=== PATIENT | female | born 1935 | race Caucasian/White ===

== ENCOUNTER 2017-12-02 00:24 | Emergency (ER) | payer OTHER ==
[~2017-12-02] VITALS: Ht 167.6 cm; Wt 83.9 kg
[~2017-12-02 00:24] MED LIST: ACETAMINOPHEN650 M5 PO; AMARYL2 MG PO; AMARYL4 MG PO; AMMONIUM LACTA225 GM TOP; CALCIUM 500 +1 EAC6 PO; CIPRO250 M1 PO; CRANBERRY200 MG PO; CRESTOR10 MG; CRESTOR10 MG PO; CYMBALTA30 MG PO; CYMBALTA60 MG; CYMBALTA60 MG PO; DULCOLAX5 MG PO; DUONEB 2.5-0.5 M3 ML INH; FISH OIL 1,2001 EAC3 PO; GEMFIBROZIL 60600 MG PO; IMDUR 30 MG TAB30 M1 PO; LASIX 20 MG TAB20 MG PO; LEVAQUIN 500 M500 M2 PO; LEVOTHYROXINE 0.15MG PO; LIDOCAINE HCL 210 M1 TOP; LOPRESSOR25 PO; MAPAP325 MG PO; MELATONIN 5 MG1 EAC1 PO; MIRALAX17 GM PO; MIRALAX255 GM PO; NEURONTIN 300300 M1 PO; NITROGLYCERIN0.4 MG SUBLING; ONE TOUCH ULTR1 EACH MC; OYSTER SHELL 51 EACH PO; OYSTER SHELL C500 MG PO; PHENAZOPYRIDIN200 M2 PO; PLAVIX 75 MG TA75 M1 PO; SEA-OMEGA 30 C1 EACH PO; SENOKOT-S TABL1 EACH PO; SYNTHROID125 MC1 PO; THERA M PLUS T1 EAC2 PO; THERA-M CAPLET1 EACH PO; TOPROL XL25 MG PO; TYLENOL325 MG PO; VITAMIN B-6100 MG PO; VITAMIN D 5050000 I1 PO; ZOCOR20 MG PO
[2017-12-02] MEDS ORDERED: PROTONIX40 M1 PO (00:35)
[2017-12-02] MEDS ORDERED: OXYBUTYNIN 5 MG5 M2 PO (00:36)
[2017-12-02] MEDS ORDERED: MIRALAX17 GM PO (00:37)
[2017-12-02] MEDS ORDERED: OMEPRAZOLE20 M2 PO (00:37)
[2017-12-02 00:48] LABS: ABSOLUTE BASOPHILS 0.1 thou/uL (0.0-0.2); ABSOLUTE EOSINOPHILS 0.2 thou/uL (0.0-0.7); ABSOLUTE LYMPHOCYTES 1.2 thou/uL (0.8-5.3); ABSOLUTE MONOCYTES 0.9 thou/uL (0.0-1.2); ABSOLUTE NEUTROPHILS 6.8 thou/uL (1.6-8.1); EOSINOPHILS 2.4 %; HEMATOCRIT 25.6 % (37.0-47.0); HEMOGLOBIN 7.9 gm/dL (12.0-15.0); LYMPHOCYTES 13.3 %; MCH 31.8 pg (26.0-34.0); MCV 102.7 fL (80.0-100.0); MONOCYTES 9.9 %; MPV 7.4 fl. (7.2-11.1); NUCLEATED RBCS 0 /100WBC; PLATELET COUNT* 493 thou/uL (150-400); POLYS 73.4 %; RBC 2.49 mil/uL (4.20-5.00); RDW-CV 18.7 % (10.5-14.5); WBC 9.2 thou/uL (4.0-11.0)
[2017-12-02 00:52] LABS: CALCIUM 7.7 mg/dL (8.5-10.1); CREATININE 2.3 mg/dL (0.6-1.3); POTASSIUM 3.9 mmol/L (3.5-5.1)
[2017-12-02 00:54] LABS: APTT 33.6 Seconds (25.0-31.3)
[2017-12-02 00:56] LABS: ALBUMIN 3.2 g/dL (3.4-5.0); TOTAL BILIRUBIN 0.2 mg/dL (<0.1-1.0); TOTAL PROTEIN 8.1 g/dL (6.4-8.2)
[2017-12-02 02:37] VITALS: BP 149/53
--- NOTE | 2017-12-02 16:45 | EKG ---
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 : 1935 Requested By: Alec Bautista Order Number: [id number] MD: Max Kruse Measurements Intervals [place] Rate: 76 P: -34 SC: 200 QRS: -46 QRSD: 146 T: 36 QT: 471 QTc: 530 Interpretive Statements Sinus rhythm Probable left atrial enlargement RBBB and LAFB Left ventricular hypertrophy Compared to ECG 11/27/2015 11:52:12 Left anterior fascicular block now present Electronically Signed On 12-02-2017 16:45:48 ZIPPER [employer]TER [employer]ST[employer] by Max Kruse [email or web address] <ELECTRONICALLY SIGNED> By: Max Kruse MD, [facility] 12/02/17 1645 0039 0039 Max Kruse MD, FAC /EPI
== END 2017-12-02 02:38 | disposition home or self-care (01) ==
LOC: M.ERS 00:24
PROVIDERS: Family Medicine
DX: S00.83XA Contusion of other part of head, initial encounter (principal); E11.40 Type 2 diabetes mellitus with diabetic neuropathy, unspecified; I12.9 Hypertensive chronic kidney disease with stage 1 through stage 4 chronic kidney disease, or unspecified chronic kidney disease; N18.9 Chronic kidney disease, unspecified; F03.90 Unspecified dementia, unspecified severity, without behavioral disturbance, psychotic disturbance, mood disturbance, and anxiety; Z85.828 Personal history of other malignant neoplasm of skin; Z90.710 Acquired absence of both cervix and uterus; Z90.49 Acquired absence of other specified parts of digestive tract; Z96.651 Presence of right artificial knee joint; Z96.642 Presence of left artificial hip joint; Z88.6 Allergy status to analgesic agent; Z88.0 Allergy status to penicillin; Z88.2 Allergy status to sulfonamides; Z88.8 Allergy status to other drugs, medicaments and biological substances; W07.XXXA Fall from chair, initial encounter; Y93.89 Activity, other specified; Y92.89 Other specified places as the place of occurrence of the external cause; Y99.8 Other external cause status

== ENCOUNTER 2017-12-05 11:48 | Inpatient (IN) | payer OTHER ==
[~2017-12-05] VITALS: Ht 167.6 cm; Wt 83.0 kg
--- NOTE | ~2017-12-05 | PROC ---
[address] [address] PROCEDURE REPORT Name: PHOENIX MCFARLANE Room: [address] IN M.R.#: [id number] Admission: 12/05/17 Attend Phys: Silviano August MD Discharge: Date of : 34 Report #: [id number] THIS REPORT FOR: //name// For GI report, please see Provation report in Perceptive 7 content. By: [id number] Records Staff [facility] /AGNIESZKA
--- NOTE | ~2017-12-05 | PROC ---
[address] [address] PROCEDURE REPORT Name: PHOENIX MCFARLANE Room: [address] IN M.R.#: [id number] Admission: 12/05/17 Attend Phys: Silviano August MD Discharge: 12/12/17 Date of : 34 Report #: [id number] THIS REPORT FOR: //name// For GI report, see Provation report in Perceptive 7 content. By: [id number] Records Staff [facility] /AGNIESZKA
[~2017-12-05 11:48] MED LIST changes: +OMEPRAZOLE20 M2 PO; +OXYBUTYNIN 5 MG5 M2 PO; +PROTONIX40 M1 PO
[2017-12-05 11:54] VITALS: BP 137/75
[2017-12-05 12:16] LABS: ABSOLUTE EOSINOPHILS 0.3 thou/uL (0.0-0.7); ABSOLUTE LYMPHOCYTES 1.3 thou/uL (0.8-5.3); ABSOLUTE MONOCYTES 0.7 thou/uL (0.0-1.2); ABSOLUTE NEUTROPHILS 6.4 thou/uL (1.6-8.1); BASOPHILS 0.2 %; EOSINOPHILS 3.6 %; HEMATOCRIT 24.1 % (37.0-47.0); LYMPHOCYTES 14.6 %; MCH 31.1 pg (26.0-34.0); MCHC 33.1 g/dL (28.0-37.0); MONOCYTES 7.8 %; MPV 7.1 fl. (7.2-11.1); NUCLEATED RBCS 0 /100WBC; PLATELET COUNT* 599 thou/uL (150-400); POLYS 73.8 %; RBC 2.56 mil/uL (4.20-5.00); RDW-CV 19.1 % (10.5-14.5); WBC 8.7 thou/uL (4.0-11.0)
[2017-12-05 12:26] LABS: CALCIUM 8.1 mg/dL (8.5-10.1); CREATININE 2.1 mg/dL (0.6-1.3); POTASSIUM 4.6 mmol/L (3.5-5.1)
[2017-12-05 12:37] LABS: ALBUMIN 3.1 g/dL (3.4-5.0); TOTAL BILIRUBIN 0.3 mg/dL (<0.1-1.0); TOTAL PROTEIN 8.6 g/dL (6.4-8.2); TROPONIN-I LEVEL 0.5 ng/mL (<0.06)
[2017-12-05 14:45] VITALS: BP 129/70
[2017-12-05 14:49] VITALS: BP 127/68
[2017-12-05 15:30] LABS: HEMATOCRIT 22.3 % (37.0-47.0); HEMOGLOBIN 7.2 gm/dL (12.0-15.0); MCH 30.5 pg (26.0-34.0); MCHC 32.3 g/dL (28.0-37.0); MCV 94.5 fL (80.0-100.0); MPV 6.9 fl. (7.2-11.1); NUCLEATED RBCS 0 /100WBC; PLATELET COUNT* 535 thou/uL (150-400); RBC 2.36 mil/uL (4.20-5.00); RDW-CV 19.2 % (10.5-14.5); WBC 8.2 thou/uL (4.0-11.0)
[2017-12-05 15:49] LABS: ABSOLUTE EOSINOPHILS 0.4 thou/uL (0.0-0.7); ABSOLUTE LYMPHOCYTES 1.1 thou/uL (0.8-5.3); ABSOLUTE MONOCYTES 0.7 thou/uL (0.0-1.2); ABSOLUTE NEUTROPHILS 6.1 thou/uL (1.6-8.1); ATYPICAL LYMPHS 2 %; HYPOCHROMASIA 2+; METAMYELOCYTES 2 %; PLATELET ESTIMATE INCREASED
[2017-12-05 15:50] LABS: MACROCYTES 1+
[2017-12-05 16:08] VITALS: BP 124/61
--- NOTE | 2017-12-05 17:21 | EKG ---
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: Miranda ZAMORA : 1935 Requested By: Stewart Chow Order Number: [id number] MD: Max Kruse Measurements Intervals [place] Rate: 95 P: 0 NE: 116 QRS: -49 QRSD: 133 T: 65 QT: 453 QTc: 570 Interpretive Statements Sinus rhythm 1st degree av block RBBB and LAFB Left ventricular hypertrophy Compared to ECG 12/02/2017 00:39:54 No significant changes Electronically Signed On 12-05-2017 17:20:53 NURSERY LABORER by Max Kruse [email or web address] <ELECTRONICALLY SIGNED> By: Max Kruse MD, [facility] 12/05/17 1720 1222 1222 Max Kruse MD, [facility] /EPI
--- NOTE | 2017-12-05 17:52 | NUR ---
RECEIVED REPORT FROM MANUEL IN ER. PT TRANSFERED TO TELE UNIT AT 1445. VSS. O2 SAT 99% ON ROOM AIR. PT A&O X4. CARDAIC MONITOR PLACED, TRACING SR/ST. STRIP PRINTED. ADMISSION ASSESSMENT, EDUCATION, AND HISTORY COMPLETED CHARTED. IV SALINE LOCKED. PT DENIES PAIN AT THIS TIME. PT ASSISTED TO BEDSIDE COMMODE, INCONTINENET OF URINE. PT ORIENTED TO ROOM, BED AND CALL LIGHT. PT EATING AND DRINKING WITHOUT ISSUE. FAMILY WAS AT BEDSIDE BUT HAS NOW LEFT. PT REPOSITIONED IN THE BED FOR COMFORT. PT INFORMED OF PLAN OF CARE. COMMUNICATES UNDERSTANDING. HIGH FALL RISK PRECAUTIONS IN PLACE. CALL LIGHT IS WITHIN REACH. HOURLY ROUNDING PERFORMED. WILL CONTINUE TO MONITOR FOR DURATION OF SHIFT.
[2017-12-05 20:00] VITALS: BP 108/70
[2017-12-05 23:19] VITALS: BP 92/74
[2017-12-06 04:04] VITALS: BP 162/69
--- NOTE | 2017-12-06 05:08 | NUR ---
ASSUMED CARE OF PATIENT AT 1900 THE PATIENT REMAINS SR ON THE MONITOR O2 SAT MAINTAINED ON RA CONTINUES TO BE UP WITH ASSIST OF 1 DURING NIGHT TO BSC INCONT EPISODE X 1 NOTED ATTEMPT TO VOID IN BSC X 2 WITHOUT SUCCESS BLADDER SCANNED IN AM 0400 658 RESULT NO FURTHER INTERVENTION TAKEN ORDER OBTAINED AT 2313 PHYSICIAN COLLABORATION MACK FOR STRAIGHT CATH ONLY FOR RESULTS >800 ML UNABLE TO OBTAIN UA THIS SHIFT PATIENT RECEINVED PRN TYLENOL ET SCHEDULED DOSE TYLENOL AT HS DURING SHIFT EFFECTIVE FOR FEVER MANAGEMENT GABAPENTIN INCREASED DOCUMENTED DOSE CLARIFIED WITH MACK AT 0030 AFTER RECEIVING CALL FROM PHARMACY STATING DOSE WAS NOT AVAILABLE IN CAPSULE FORM PATIENT PROGRESSES TOWARDS GOALS PRESENTLY AFEBRILE RESTING WITHOUT S/SX OF ACUTE PAIN,N/V,SOA DISTRESS SX MANAGEMENT SAFETY INTERVENTIONS CONTINUE BED LOWERED WHEELS LOCKED CALL LIGHT IN REACH SIDE RAILS UP REPORT TO BE GIVEN TO ONCOMING NGUYỄN
[2017-12-06 05:15] LABS: HEMATOCRIT 21.3 % (37.0-47.0); HEMOGLOBIN 7.1 gm/dL (12.0-15.0); MCHC 33.4 g/dL (28.0-37.0); MCV 92.8 fL (80.0-100.0); MPV 6.7 fl. (7.2-11.1); PLATELET COUNT* 508 thou/uL (150-400); RDW-CV 19.2 % (10.5-14.5); WBC 6.9 thou/uL (4.0-11.0)
[2017-12-06 05:22] LABS: CALCIUM 7.9 mg/dL (8.5-10.1); CREATININE 2.1 mg/dL (0.6-1.3); MAGNESIUM 1.8 mg/dL (1.8-2.4)
[2017-12-06 05:41] LABS: POTASSIUM 3.5 mmol/L (3.5-5.1)
--- NOTE | 2017-12-06 07:20 | NUR ---
CHANGE OF SHIFT, BEDSIDE REPORT GIVEN ASSUMED PATIENT CARE SEEN AT BEDSIDE, ASLEEP BED ALARM SET
[2017-12-06 08:00] VITALS: BP 167/89
[2017-12-06 08:22] LABS: PLATELET ESTIMATE INCREASED
[2017-12-06 08:23] LABS: ANISOCYTOSIS 1+; POIKILOCYTOSIS 1+; POLYCHROMASIA 1+
[2017-12-06 12:00] VITALS: BP 125/76
--- NOTE | 2017-12-06 12:30 | NUR ---
MET WITH PT AND DTR/BRENDA TO DISCUSS HOME SITUATION/DC PLANNING. PT LIVES IN ASSISTED LIVING AT THE [facility]. SHE STATES SHE USES W/C MOSTLY, HAS WALKER. PT HAS HAD HH WITH [facility] IN THE PAST. PT PLANS TO RETURN TO [facility] AT [place]. PER DTR, WAS IN AND DISCUSSED SETTING UP [place] AND SCHEDULED TRANSFUSIONS. WILL FOLLOW [facility] [phone]
[2017-12-06 16:13] VITALS: BP 111/54
[2017-12-06 16:15] VITALS: BP 111/54
--- NOTE | 2017-12-06 18:54 | NUR ---
PATIENT IN BED RESTING REMAINS A AND O X 3-4, FORGETFUL H/O DEMENTIA SR/1ST DEGR AT TIMES LUNGS CTA/DIM/RA POOR APPETITE LAST BM T-1 GOOD UO INC URINE MOST TIMES UP WITH ONE ASSIST TO CHAIR/BSC IV 20 GA L AC SL BRUISES UP R BROW AND UPPER R EYE LID NO C/O PEIN TODAY CALL LIGHT IN REACH AND INSTRUCTION GIVEN AND FOLLOWED BED ALARM ON REF SCDS
[2017-12-06 20:00] VITALS: BP 121/63
[2017-12-06 22:16] LABS: URINE BILIRUBIN NEGATIVE (Negative); URINE BLOOD NEGATIVE (Negative); URINE CLARITY CLEAR; URINE COLOR YELLOW; URINE GLUCOSE-RANDOM NEGATIVE (Negative); URINE KETONES NEGATIVE (Negative); URINE NITRITE-REFLEX NEGATIVE (Negative); URINE PROTEIN TRACE (Negative); URINE SPECIFIC GRAVITY 1.015 (1.005-1.030); URINE UROBILINOGEN 0.2 E.U./dl (0.2-1.0)
[2017-12-06 22:18] LABS: URINE LEUKOCYTES-REFLEX 2+ (Negative)
[2017-12-06 22:31] LABS: BACTERIA-REFLEX >30 Many /HPF (None Seen); CASTS None Seen /LPF (None Seen); CRYSTALS None Seen /LPF (None Seen); MUCUS 0-3 Light strn/LPF (None Seen); SQUAMOUS >10 Many /LPF (0-3); TRANSITIONAL EPITHEL CELL 0-3 Few /LPF (None Seen); URINE RBC 0-2 Rare /HPF (0-2); URINE WBC-REFLEX >25 Many /HPF (0-5); WBC CLUMPS Few (None Seen)
[2017-12-07] VITALS: BP 136/70
[2017-12-07 04:11] VITALS: BP 164/74
--- NOTE | 2017-12-07 06:17 | NUR ---
ASSUMED CARE OF PATIENT AT 1900 THE PATIENT REMAINS SR ON THE MONITOR O2 SAT MAINTAINED ON RA CONTINUES TO BE UP WITH ASSIST OF 1 DURING NIGHT TO BSC ASSUMED CARE OF PATIENT AT 1900 REMAINS SR C BBB ON O2 SAT MAINTAINED ON RA INCONT EPISODE X 1 NOTED UA OBTAINED UTILIZING HAT PATIENT PROGRESSES TOWARDS GOALS PRESENTLY AFEBRILE RESTING WITHOUT S/SX OF ACUTE PAIN,N/V,SOA DISTRESS SAFETY INTERVENTIONS CONTINUE BED LOWERED WHEELS LOCKED CALL LIGHT IN REACH SIDE RAILS UP REPORT TO BE GIVEN TO ONCOMING NGUYỄN
[2017-12-07 08:00] VITALS: BP 166/69
[2017-12-07 10:50] LABS: HEMATOCRIT 21.1 % (37.0-47.0)
[2017-12-07 10:52] LABS: HEMOGLOBIN 6.9 gm/dL (12.0-15.0)
[2017-12-07 12:03] VITALS: BP 155/68
--- NOTE | 2017-12-07 12:41 | CON ---
[address] [address] CONSULTATION Name: PHOENIX MCFARLANE Room: [address] IN M.R.#: [id number] Admission: 12/05/17 Attend Phys: Silviano August MD Discharge: Date of : 34 Report #: [id number] THIS REPORT FOR: //name// CC: Silviano Loo DATE OF SERVICE: 12/05/2017 HISTORY OF PRESENT ILLNESS: The patient is an 82-year-old single white female who I was asked to see in the hospital today after she was noted to have an abnormal troponin. The patient has a long history of heart disease. Unfortunately, not a lot of her old records are at this hospital. The history is obtained from the patient, her daughter and grandson. The patient previously lived in [place], [place]. She apparently had an abnormal stress test and had several coronary stents placed back in the . She eventually underwent double coronary artery bypass surgery in [facility] in 1999. She has done fairly well since that time from a cardiac standpoint. Several years ago, she moved into a longterm here in [place]. She is not very active because of fatigue, falls and chronic weakness of her legs. She basically is in a wheelchair. She has been seen in the Cardiology Clinic here in [place] by Dr. Venegas. Previous workup included a nuclear stress test in 11/2015 that showed normal rest images. However, the patient refused stress images. She actually had an echocardiogram at that time that showed an ejection fraction 60%, aortic sclerosis. The patient was last admitted here in 11/2015 with atypical chest pain and was seen by Dr. Venegas at that time. Apparently recently, the patient was noted to have anemia on a blood draw. She noticed some fatigue and shortness of breath. Her blood was drawn earlier today routine testing and she again noted to be anemic. Because of the anemia, she was sent over to the Emergency Room. She is admitted for further evaluation and treatment. She denies any significant chest pain, cough, fever, swelling of her feet, palpitations, syncope. She does fall a lot. She does have some memory loss. PAST MEDICAL HISTORY: Otherwise significant for cholecystectomy, thyroidectomy, hip surgery, knee surgery, hysterectomy, vein stripping from the leg, bladder tack. She has a history of diabetes, hypertension, hyperlipidemia, chronic kidney disease. CURRENT MEDICATIONS: At the longterm consist of the following list: She is on metoprolol, gemfibrozil, isosorbide, clopidogrel, Neurontin, Lasix, glimepiride, Synthroid, Protonix, oxybutynin. ALLERGIES: SHE APPARENTLY HAD A PREVIOUS REACTION TO SULFA DRUGS, PENICILLIN [place] [address] CONSULTATION Name: PHOENIX MCFARLANE Room: [address] IN [facility]#: [id number] Admission: 12/05/17 Attend Phys: Silviano August MD Discharge: Date of : 34 Report #: [id number] FAMILY HISTORY: Her mother had heart disease. SOCIAL HISTORY: She is . No history of smoking or alcohol abuse. REVIEW OF SYSTEMS: She apparently had an MRI of the brain in the past, told she had evidence of previous stroke. She has no history of asthma, peptic ulcer disease. She has had chronic kidney disease. She has had a skin cancer removed in the past. She has been diagnosed with neuropathy of her legs in the past. PHYSICAL EXAMINATION: GENERAL: Revealed an elderly female lying in bed. She appeared in no distress. VITAL SIGNS: She had a blood pressure of 130/70, pulse is 80. She is afebrile. HEENT: She was anicteric, conjunctivae pink. Mucous members moist. NECK: Veins do not appear distended. No carotid bruits heard. CHEST: Clear to auscultation. CARDIAC: Regular rate and rhythm. Grade 2 systolic ejection murmur along the left sternal border. ABDOMEN: Obese, soft, nontender. EXTREMITIES: Have a trace pitting edema. Dorsalis pedis pulse 1+ bilaterally. SKIN: Cool and dry. NEUROLOGIC: She is a very slow moving. LABORATORY DATA: Her workup in the Emergency Room shows a sinus rhythm, first degree AV block, left ventricular hypertrophy, right bundle-branch block, no significant ST or T-wave change. Workup in the Emergency Room shows sodium 138, BUN 35, creatinine 2.1, glucose 163. Her troponin is 0.5. Her BNP 3499. Her white blood cell count 8.7, hemoglobin 8.0, it was 7.9 three days ago. Her differential looks unremarkable. MCV is normal at 94. X-rays in the Emergency Room today: She had a portable chest x-ray, normal heart size, clear lung cruz. CT scan of the head without contrast done earlier today showed chronic changes, no acute abnormality. IMPRESSION AND RECOMMENDATIONS: 1. Previous coronary artery bypass surgery. The patient is on Plavix. No recent angina. Borderline troponin. In light of her advanced age and no code blue status, I would recommend a conservative approach. I would not recommend stress testing nor cardiac catheterization. 2. Hypertension. The patient has been on a beta-stefania. 3. Hyperlipidemia. The patient is on a statin drug. 4. Chronic kidney disease. 5. Anemia. No history of bleeding. 6. Memory loss. <ELECTRONICALLY SIGNED> By: Max Kruse MD, FACC 12/07/17 1241 1542 0442Dcandy Kruse MD, FACC /nt
[2017-12-07 13:13] VITALS: BP 132/62; BP 136/72; BP 138/72; BP 140/75
[2017-12-07 18:09] LABS: HEMATOCRIT 24.9 % (37.0-47.0); HEMOGLOBIN 8.4 gm/dL (12.0-15.0)
--- NOTE | 2017-12-07 19:20 | NUR ---
patient remains a and o x 3-4 forgetful, h/o dementia sr/st ra good appetite last bm t-2 inc bladder multiple xs up with 1 assist to bsc/chair bruises r eyebrow and eyelid resolving r knee scab patient without c/o pain accuchecks 137/188/171 abn labs monitored hgb low 6.9 dr notified 1 uprbcs given redraw hgb 1 hr post transfusion 8.4 iv 20 ga r ac sl call light in reach and instruction given and followed bed alarm set
[2017-12-07 20:00] VITALS: BP 143/62
[2017-12-08] VITALS (9 sets, daily range): BP systolic 128–153; BP diastolic 56–104
--- NOTE | 2017-12-08 06:23 | NUR ---
NIGHT UNEVENTFUL PATIENT CONTINUES TO PROGRESS TOWARDS GOALS SAFETY INTERVENTIONS CONTINUE REPORT TO BE GIVEN TO ONCOMING RN.
--- NOTE | 2017-12-08 07:30 | NUR ---
ASSUMED CARE OF PT ASSESSED AND DOCUMENTED. PT IS ON CARDIAC MONITER TRACING SR BBB HR 84. PT IS A&O WITH NO C/O PAIN. PT IS AFEBRILE AND IS ON ROOM AIR. BED IS IN LOW POSITION CALL LIGHT IS IN REACH. WM.
[2017-12-08 13:15] LABS: ABSOLUTE LYMPHOCYTES 2.2 thou/uL (0.8-5.3); ABSOLUTE NEUTROPHILS 4.2 thou/uL (1.6-8.1)
[2017-12-08 13:16] LABS: ABSOLUTE BASOPHILS 0.1 thou/uL (0.0-0.2); ABSOLUTE EOSINOPHILS 0.4 thou/uL (0.0-0.7)
--- NOTE | 2017-12-08 13:32 | S ---
[address] [address] SURGICAL PATH RPT PROCEDURE Name: PHOENIX GOEL Room: [address] IN M.R.#: [id number] Admission: 12/05/17 Date of : 34 Discharge: Report #: [id number] Path Case #: [id number] PATHOLOGY REPORT COLLECTION DATE: 12/05/2017 RECEIVED DATE: 12/05/2017 SUBMITTING PHYS: Dr. Silviano August OTHER PHYS: Dr. Julia Loo SPECIMEN(S) RECEIVED: A.Peripheral smear * * * * * * * * * * * * FINAL DIAGNOSIS: Peripheral smear: - Thrombocytosis, moderate. - Normocytic normochromic anemia, moderate, with mild anisopoikilocytosis. COMMENT: The peripheral smear shows moderate thrombocytosis and a moderate normocytic normochromic anemia with mild anisopoikilocytosis. With regards to the thrombocytosis, would rule out causes of a reactive thrombocytosis. If the thrombocytosis is persistent and there are no obvious causes of thrombocytosis, then the findings could be compatible with a chronic myeloproliferative disorder, i.e., essential thrombocythemia. The etiology of the anemia is not readily apparent from the red blood cell morphology. There is no morphologic evidence of hemolysis. One of the smears shows a suggestion of red blood cell rouleaux. Would recommend serum protein studies to rule out the possibility of a monoclonal gammopathy. (JAKOBM:flor; 12/08/2017) PATHOLOGIST: Silviano Edmonds M.D. REPORT ELECTRONICALLY SIGNED BY: Silviano Edmonds M.D. DATE/TIME: 12/08/2017 13:31 * * * * * * * * * * * * MICROSCOPIC DESCRIPTION: Laboratory Data: The CBC results are dated 12/05/17. The WBC count is 8.2 K/CMM, and the WBC differential reveals 71% segmented neutrophils, 1% bands, 11% lymphocytes, 8% monocytes, 5% eosinophils, 2% metamyelocytes, and 2% atypical lymphocytes. The RBC count is 2.36 M/CMM, hemoglobin 7.2 G/DL, hematocrit 22.3%, MCV 94.5 FL, MCH 30.5 PG, MCHC 32.3 G/DL, and the RDW is 19.2%. The platelet count is 535 K/CMM. Peripheral Smear: The peripheral smear is reviewed. The WBC [place] [address] SURGICAL PATH RPT PROCEDURE Name: PHOENIX GOEL Room: [address] IN [facility]#: [id number] Admission: 12/05/17 Date of : 34 Discharge: Report #: [id number] Path Case #: [id number] differential reveals a predominance of segmented neutrophils, with smaller populations of lymphocytes and monocytes and several eosinophils noted. Neutrophils do not show dysplastic changes. There is a rare circulating myelocyte. There is no significant neutrophilic left shift. There are no circulating blasts. There is no leukoerythroblastic reaction. The lymphocyte population consists predominantly of small lymphocytes. There are a few medium-sized granular lymphocytes and reactive lymphocytes. Red blood cells predominantly appear normochromic. There are a few hypochromic red blood cells. There is mild polychromasia. Red blood cells predominantly appear normocytic but do show mild anisocytosis. Red blood cells show mild poikilocytosis with a few ovalocytes and teardrop red blood cells noted. Platelets are moderately increased. Platelets predominantly appear normal in size with occasional large platelets noted. GROSS PATHOLOGY: Received are two Crocker stained peripheral blood smears, labeled, Phoenix Goel. CLINICAL HISTORY: Physician request peripheral smear review; anemia with thrombocythemia. INITIAL CPT CODE(S): A; 13156 Professional services performed by [employer] at [facility], [address] [place] [address]. Technical services performed by [employer] at [address] [place] [address], [address], [place] [address]. [employer] [address] [place] [address] PHONE: [phone] DIRECTOR: Obi Rodriguez M.D. * * * END OF REPORT * * *
--- NOTE | 2017-12-08 13:41 | NUR ---
Spoke with Pt regarding disposition. Pt in agreement with going to skilled at dc. Pt had questions regarding Epo, Pt is not sure that she wants to continue it, if it is life sustaining. Updated Dr Scott. Following.
--- NOTE | 2017-12-08 17:46 | NUR ---
PT HAS RESTED IN HER BED OR IN A CHAIR AT BEDSIDE THIS SHIFT. DAUGHTER HAS BEEN AT BEDSIDE. PT HAD A LG STOOL AND SAMPLE TAKEN TO LAB PER ORDERS. PT IS A MAX ASSIST TO BEDSIDE COMMODE. EDUCATION GIVEN ON DEMAND. HOURLY ROUNDING COMPLETE.
[2017-12-09 04:24] VITALS: BP 162/72
--- NOTE | 2017-12-09 05:02 | NUR ---
Pt pleasant, forgetful. Pt inquired on at least two occasions during this shift whether her family would be coming in to see her. Reminded pt that it was middle of the night, to which she states, "Oh, I sometimes get my days and nights mixed up." VSS. Incontinent of urine. Up to BSC once with max assist. Will continue to monitor.
[2017-12-09 07:45] VITALS: BP 158/79
--- NOTE | 2017-12-09 11:06 | NUR ---
RECEIVED PT CARE 0700. PT IS ALERT AND ORIENTED X4. VSS. SHIFT PRODUCTION SUPERVISOR TRACNIG SR WITH 1ST/BBB. PATIENT DENIES PAIN. NO SOA. O2 SAT 97% ON ROOM AIR. UP WITH ASSIST X1-2 TO CHAIR WITH PHYSICAL THERAPY. BRIEF IN PLACE FOR STRESS INCONTINENCE. AM ASSESSMENT CHARTED. MEDS PER MAR. IV IRON INFUSED. UPDATED [facility] WHERE PATIENT IS FROM ON THE PLAN OF CARE. PATIENT UP IN THE CHAIR CURRENTLY. NO NEEDS OR WANTS AT THIS TIME. WILL CONTINUE TO MONITOR.
[2017-12-09 12:00] VITALS: BP 114/61
[2017-12-09 12:29] LABS: ABSOLUTE BASOPHILS 0.1 thou/uL (0.0-0.2); ABSOLUTE EOSINOPHILS 0.3 thou/uL (0.0-0.7); ABSOLUTE LYMPHOCYTES 1.3 thou/uL (0.8-5.3); ABSOLUTE MONOCYTES 0.6 thou/uL (0.0-1.2); ABSOLUTE NEUTROPHILS 5.2 thou/uL (1.6-8.1); HEMATOCRIT 28.7 % (37.0-47.0); HEMOGLOBIN 9.3 gm/dL (12.0-15.0); LYMPHOCYTES 17.2 %; MCH 29.9 pg (26.0-34.0); MCHC 32.3 g/dL (28.0-37.0); MCV 92.4 fL (80.0-100.0); MONOCYTES 8.6 %; MPV 6.7 fl. (7.2-11.1); NUCLEATED RBCS 0 /100WBC; PLATELET COUNT* 651 thou/uL (150-400); POLYS 69.2 %; RBC 3.11 mil/uL (4.20-5.00); RDW-CV 18.4 % (10.5-14.5); WBC 7.5 thou/uL (4.0-11.0)
[2017-12-09 12:46] LABS: CALCIUM 8.2 mg/dL (8.5-10.1); CREATININE 2.2 mg/dL (0.6-1.3); POTASSIUM 4.2 mmol/L (3.5-5.1)
--- NOTE | 2017-12-09 13:23 | NUR ---
Pt won't dc today, possible GI bleed. Both [facility] are able to accept Pt, updated on cancelled dc. Following.
--- NOTE | 2017-12-09 15:21 | S ---
[address] [address] SURGICAL PATH RPT PROCEDURE Name: POHENIX GOEL Room: [address] IN M.R.#: [id number] Admission: 12/05/17 Date of : 33 Discharge: Report #: [id number] Path Case #: [id number] PATHOLOGY REPORT COLLECTION DATE: 12/08/2017 RECEIVED DATE: 12/08/2017 SUBMITTING PHYS: Dr. Silviano August OTHER PHYS: Dr. Julia Loo SPECIMEN(S) RECEIVED: A.Peripheral smear * * * * * * * * * * * * FINAL DIAGNOSIS: Peripheral Smear: - Thrombocytosis, moderate. - Normocytic normochromic anemia, moderate, with mild anisopoikilocytosis. - Leukoerythroblastic reaction. COMMENT: The peripheral smear shows similar findings to that reported yesterday, which include moderate thrombocytosis and a moderate normocytic normochromic anemia with mild anisopoikilocytosis. In addition, there is a leukoerythroblastic reaction comprised of occasional circulating myelocytes and metamyelocytes and a rare nucleated red blood cell. Once again, with regards to the thrombocytosis, would rule out causes of a reactive thrombocytosis. If the thrombocytosis is persistent and there are no obvious causes of thrombocytosis, then the findings could be compatible with a chronic myeloproliferative disorder, i.e. essential thrombocythemia. The leukoerythroblastic reaction could be reactive or also compatible with a chronic myeloproliferative disorder. The etiology of the anemia is not readily apparent. I would note that although red blood cells are predominantly normochromic, there are a few hypochromic red blood cells (dual red blood cell population) , such that I cannot exclude the possibility of a sideroblastic anemia. Please correlate with serum iron studies. (JPM:pit; 12/09/2017) PATHOLOGIST: Silviano Edmonds M.D. REPORT ELECTRONICALLY SIGNED BY: Silviano Edmonds M.D. DATE/TIME: 12/09/2017 15:20 * * * * * * * * * * * * MICROSCOPIC DESCRIPTION: Laboratory Data: The WBC count is 6.9 K/CMM, and the automated WBC differential reveals 61% segmented neutrophils, 32.0% lymphs, 6.0% [place] [address] SURGICAL PATH RPT PROCEDURE Name: PHOENIX GOEL Room: [address] IN [facility]#: [id number] Admission: 12/05/17 Date of : 33 Discharge: Report #: [id number] Path Case #: [id number] eos, and 1.0% baso. The RBC count is 2.30 M/CMM, hemoglobin 7.1 G/DL, hematocrit 21.3%, MCV 92.8 FL, MCH 31.0 PG, MCHC 33.4 G/DL, and the RDW is 19.2%. The platelet count is 508 K/CMM. Peripheral Smear: The peripheral smear is reviewed. The WBC count is normal. The WBC differential reveals a predominance of segmented neutrophils, with smaller populations of lymphocytes and monocytes and a few eosinophil and occasional basophils noted. Neutrophils do not show dysplastic changes. There is a leukoerythroblastic reaction comprised of occasional circulating myelocytes and metamyelocytes and a rare circulating nucleated red blood cell. There are no circulating blasts. The lymphocyte population consists predominantly of small lymphocytes. Red blood cells predominantly appear normochromic. There are a few hypochromic red blood cells. There is mild polychromasia. Red blood cells predominantly appear normocytic but do show mild anisocytosis. Red blood cells show mild poikilocytosis with a few ovalocytes and teardrop red blood cells noted. Platelets are moderately increased. Platelets predominantly appear normal in size with occasional large platelets noted. (JPM:pit; 12/09/2017) GROSS PATHOLOGY: Received are two Crocker stained smears, labeled, Phoenix Goel. CLINICAL HISTORY: None Provided INITIAL CPT CODE(S): 89956 Professional services performed by [employer] at [facility], [address] [place] [address]. Technical services performed by [employer] at [address] [place] [address], [address], [place] [address]. [facility] [address] [place] [address] PHONE: [phone] DIRECTOR: Obi Rodriguez M.D. * * * END OF REPORT * * *
--- NOTE | 2017-12-09 18:07 | NUR ---
PT UP TO BSC WITH MOD ASSIST X1. NO C/O CURRENTLY. SITTING IN BED, APPEARS COMFORTABLE, WATCHING TV. ABLE TO MAKE NEEDS KNOWN, CALL LIGHT IN REACH
[2017-12-09 20:00] VITALS: BP 140/70
[2017-12-10] VITALS: BP 125/57
--- NOTE | 2017-12-10 03:41 | NUR ---
RESTING THROUGHOUT NIGHT. NO COMPLAINTS OF PAIN OR DISCOMFORT. NO SIGN OF DISTRESS. BED IN LOW POSITION, CALL LIGHT IN REACH, BED ALARM ON. WILL PROCEED WITH CURRENT PLAN OF CARE AT THIS TIME.
[2017-12-10 05:26] LABS: HEMATOCRIT 26.4 % (37.0-47.0); HEMOGLOBIN 8.6 gm/dL (12.0-15.0); MCH 30.1 pg (26.0-34.0); MCHC 32.7 g/dL (28.0-37.0); MCV 92.1 fL (80.0-100.0); MPV 7.2 fl. (7.2-11.1); RBC 2.87 mil/uL (4.20-5.00); RDW-CV 18.4 % (10.5-14.5); WBC 9.6 thou/uL (4.0-11.0)
[2017-12-10 08:06] VITALS: BP 173/54
[2017-12-10 12:00] VITALS: BP 155/71
--- NOTE | 2017-12-10 12:54 | 2DMMODE ---
[place] [address] 2 D/M-MODE ECHOCARDIOGRAM Name: PHOENIX MCFARLANE Room: [address] ADM IN [facility]#: [id number] Admission: 12/05/17 Attend Phys: Silviano August, Discharge: Date of : 33 Date of Service: 12/10/17 1254 Report #: [id number] THIS REPORT FOR: //name// APPROVED REPORT Study performed: 12/10/2017 09:40:51 EXAM: Comprehensive 2D, Doppler, and color-flow Echocardiogram Patient Location: In-Patient Room #: 221 Status: routine BSA: 1.93 HR: 88 bpm BP: 173/54 mmHg Rhythm: NSR Other Information Study Quality: Good Indications Pre-Op Anemia, weakness 2D Dimensions LVEF(%): 62.51 (>50%) IVSd: 15.13 (7-11mm) LVOT Diam: 17.39 (18-24mm) LVDd: 45.90 mm PWd: 11.90 (7-11mm) Ascending Ao: 33.60 (22-36mm) LVDs: 30.46 (25-40mm) Aortic Root: 29.06 mm Randhawa's LVEF: 62.51 % Volumes Left Atrial Volume (Systole) LA ESV Index: 31.80 mL/m2 Aortic Valve AoV Peak Timothy.: 1.71 m/s AO Peak Gr.: 11.68 mmHg LVOT Max P.90 mmHg AO Mean Gr.: 7.01 mmHg LVOT Mean P.00 mmHg LVOT Max V: 0.99 m/s AO V2 VTI: 37.98 cm LVOT Mean V: 0.65 m/s EVELYN (VTI): 1.43 cm2 LVOT V1 VTI: 22.90 [place] [address] 2 D/M-MODE ECHOCARDIOGRAM Name: PHOENIX MCFARLANE Room: [address] IN .R.#: [id number] Admission: 12/05/17 Attend Phys: Silviano August, Discharge: Date of : 34 Date of Service: 12/10/17 1254 Report #: [id number] E/A Ratio: 0.66 MV Decel. Time: 256.92 ms MV E Max Timothy.: 0.72 m/s MV PHT: 74.51 ms MVA (PHT): 2.95 cm2 TDI E/Lateral E': 8.00 E/Medial E': 12.00 Medial E' Timothy.: 0.06 m/s Lateral E' Timothy.: 0.09 m/s Pulmonary Valve PV Peak Timothy.: 1.09 m/s PV Peak Gr.: 4.73 mmHg Left Ventricle The left ventricle is normal size. There is normal LV segmental wall motion. Mild concentric left ventricular hypertrophy. Left ventricular systolic function is normal. The left ventricular ejection fraction is within the normal range. LVEF is 55-60%. Grade I - abnormal relaxation pattern. Right Ventricle The right ventricle is normal size. The right ventricular systolic function is normal. Atria Left atrium is mildly dilated. The right atrium size is normal. Aortic Valve Moderate aortic valve sclerosis. No aortic regurgitation is present. Mild aortic stenosis. Mitral Valve The mitral valve is normal in structure. Mild mitral regurgitation. No evidence of mitral valve stenosis. Tricuspid Valve The tricuspid valve is normal in structure. Unable to assess PA pressure. Trace tricuspid regurgitation. Pulmonic Valve Pulmonic valve is not well visualized. There is no pulmonic valvular regurgitation. [place] [address] 2 D/M-MODE ECHOCARDIOGRAM Name: PHOENIX MCFARLANE Room: [address] IN [facility]#: [id number] Admission: 12/05/17 Attend Phys: Silviano August, Discharge: Date of : 34 Date of Service: 12/10/17 1254 Report #: [id number] The aortic root is normal in size. IVC is normal in size and collapses with >50% inspiration Pericardium There is no pericardial effusion. <Conclusion> Mild concentric left ventricular hypertrophy. LVEF is 55-60%. Left atrium is mildly dilated. Mild aortic stenosis. Mild mitral regurgitation. <ELECTRONICALLY SIGNED> By: Max Kruse MD, FACC 12/10/17 1254 1254 1254 Max Kruse MD, FACC /INF
[2017-12-10 13:57] VITALS: BP 155/71
[2017-12-10 13:59] VITALS: BP 137/75
--- NOTE | 2017-12-10 16:13 | CON ---
[address] [address] CONSULTATION Name: PHOENIX MCFARLANE Room: [address] IN ..#: [id number] Admission: 12/05/17 Attend Phys: Silviano August MD Discharge: Date of : 34 Report #: [id number] THIS REPORT FOR: //name// CC: Silviano Loo DATE OF SERVICE: 12/09/2017 REASON FOR CONSULTATION: Iron-deficiency anemia. HISTORY OF PRESENT ILLNESS: This is an 82-year-old female who was admitted to the hospital with falls. The patient reports that she has been feeling dizzy and falling. During her hospitalization, she was found to be anemic with hemoglobin of 7. Since admission, she has been transfused and her hemoglobin is around 9. She also has received IV iron. She denies any hematochezia or melena. She has chronic kidney disease with creatinine around 2.5. She also has elevated troponin, which Cardiology believes is associated with her renal disease. She denies any chest pain, nausea, vomiting, hematemesis, diarrhea, constipation or hematochezia. PAST MEDICAL HISTORY: Significant for history of hypothyroidism; anemia; diabetes; dyslipidemia; hypertension; GERD; dementia; chronic kidney disease; coronary artery disease, status post SC in 1999; skin cancer; left hip and right knee arthroplasty; hysterectomy; gallbladder disease, status post cholecystectomy; appendectomy and thyroidectomy. ALLERGIES: SIGNIFICANT FOR IBUPROFEN, ASPIRIN, PENICILLIN, PROMETHAZINE AND SULFA. MEDICATIONS: Please refer to hospital [facility]. SOCIAL HISTORY: The patient lives at home. She denies tobacco or alcohol use. FAMILY HISTORY: Noncontributory. PHYSICAL EXAMINATION: VITAL SIGNS: Reveals blood pressure of 114/61, respirations 16, pulse of 87 and temperature 98. LUNGS: Clear. CARDIOVASCULAR: Regular. ABDOMEN: Soft, nontender and nondistended. Bowel sounds are positive. LABORATORY DATA: Labs reveal sodium of 139, potassium 4.2, BUN is 36, creatinine 2.2 and glucose 184. AST is 49, ALT 15 and total bilirubin is 0.3. Troponin on 12/05/2017 was 0.48. Iron saturation is 6, TIBC is 285 and ferritin is 106. INR is 1. WBC is 7.5 with hemoglobin of 9.3, up from 6.9 on 12/07/2017 [place] [address] CONSULTATION Name: PHOENIX MCFARLANE Room: [address] IN [facility]#: [id number] Admission: 12/05/17 Attend Phys: Silviano August MD Discharge: Date of : 34 Report #: [id number] and platelets are 651,000. ASSESSMENT AND PLAN: The patient with a history of anemia and colonoscopy about 7 years ago, who has iron deficiency and denies any GI symptoms. She already has gotten transfused with 2 units of packed RBC and received iron infusion. We will continue to monitor hemoglobin and perform an upper endoscopy. We will get a cardiac clearance prior to doing that. If we do not find anything, we will consider a colonoscopy. <ELECTRONICALLY SIGNED> By: Dorina Melo MD 12/10/17 1613 1558 [id number] Melo MD /nt
[2017-12-10 20:00] VITALS: BP 151/73
[2017-12-11 00:01] VITALS: BP 145/74
--- NOTE | 2017-12-11 01:30 | NUR ---
PATIENT CONT. PREP FOR COLONOSCOPY IN AM. PATIENT HAS BEEN HAVING MULTIPLE STOOLS. SUGGESTED FECAL TUBE TO PREVENT SKIN IRRITATION. PATIENT WAS HIGHLY AGREEABLE THIS WOULD PROVIDE SOME COMFORT DUE TO HER FREQUENT INCONT. FECAL TUBE PLACED WITHOUT DIFFICULTIES. PATIENT IS ALERT AND ORIENTED WITHOUT COMPLAINTS. BED IN LOW POSITION, CALL LIGHT IN REACH, BED ALARM ON. CONT. WITH PLAN OF CARE.
--- NOTE | 2017-12-11 07:20 | NUR ---
CHANGE OF SHIFT, BEDSIDE REPORT GIVEN ASSUMED PATIENT CARE PATIENT SEEN AT BEDSIDE, ASLEEP BED ALARM SET
[2017-12-11 07:45] VITALS: BP 168/74
[2017-12-11 11:46] VITALS: BP 160/76
--- NOTE | 2017-12-11 12:36 | S ---
[place] [address] SURGICAL PATH RPT PROCEDURE Name: PHOENIX GOEL Room: [address] IN M.R.#: [id number] Admission: 12/05/17 Date of : 34 Discharge: Report #: [id number] Path Case #: [id number] PATHOLOGY REPORT COLLECTION DATE: 12/10/2017 RECEIVED DATE: 12/10/2017 SUBMITTING PHYS: Dr. Dorina Melo OTHER PHYS: Dr. Silviano Loo SPECIMEN(S) RECEIVED: A.Duodenum * * * * * * * * * * * * FINAL DIAGNOSIS: Duodenal biopsy: - Normal duodenal / small intestinal mucosa. (PARTHA:mml; 12/11/2017) PATHOLOGIST: uBrton Hair M.D. REPORT ELECTRONICALLY SIGNED BY: Burton Hair M.D. DATE/TIME: 12/11/2017 12:35 * * * * * * * * * * * * GROSS PATHOLOGY: Received in formalin labeled "Phoenix Goel, duodenal biopsy for iron deficiency rule out celiac sprue," are 5 segments of carrasco soft tissue measuring 0.9 x 0.7 x 0.2 cm in aggregate dimensions and ranging from 0.2 to 0.3 cm in maximum dimension. The specimen is submitted entirely in cassette A1. (TSD; 12/10/2017) CLINICAL HISTORY: None provided INITIAL CPT CODE(S): A; 46358 Professional services performed by [facility] at [facility], [address] [place] [address]., [place] [address]. Technical services performed by [facility] at [address] [place] [address], [address], [place], [place] [address]. [facility] [address] [id number] SURGICAL PATH RPT PROCEDURE Name: PHOENIX GOEL Room: [address] IN M.R.#: [id number] Admission: 12/05/17 Date of : 34 Discharge: Report #: [id number] Path Case #: [id number] Elian Cole [place] [address] PHONE: [phone] DIRECTOR: Obi Rodriguez M.D. * * * END OF REPORT * * *
--- NOTE | 2017-12-11 13:22 | NUR ---
ASSUMED CARE OF PATIENT AFTER TRANSFER FROM PACU. ALERT AND ORIENTED X3-4. VSS ON ROOM AIR. PATIENT ORIENTED TO ROOM. FAMILY IS AT BEDSIDE. CALL LIGHT IS WITHIN REACH. NURSING WILL CONTINUE TO MONITOR.
[2017-12-11 13:23] VITALS: BP 122/80
--- NOTE | 2017-12-11 13:41 | NUR ---
Assessed Left arm for IV access, applied Tourniquette, pt tolerated well. Vein finder used. No quality veins present. Discussed with NGUYỄN Diaz. Intervention withheld.
[2017-12-11 16:04] VITALS: BP 159/78
--- NOTE | 2017-12-11 17:34 | NUR ---
PATIENT REMAINS ALERT AND ORIENTED. NO COMPLAINTS OF PAIN OR NAUSEA. PATIENT IS VERY WEAK AND TAKES 2 PERSONS TO TRANSFER SAFELY. SUPPORTIVE FAMILY HAS BEEN AT BEDSIDE SINCE PATIENTS RETURN FROM PACU. COLONOSCOPY COMPLETED TODAY. REFERRAL TO REHAB WAS ORDERED BY DR NEGRETE THIS AFTERNOON. PATIENT RESTING COMFORTABLY IN THE RECLINER AT THIS TIME. HOURLY ROUNDS HAVE BEEN MAINTAINED. CALL LIGHT IS WITHIN REACH. NURSING WILL CONTINUE TO MONITOR.
[2017-12-11 20:00] VITALS: BP 153/76
[2017-12-12] VITALS: BP 138/60
--- NOTE | 2017-12-12 04:38 | NUR ---
PATIENT ORIENTED X4 BUT FORGETFUL AT TIMES. DENIES PAIN OR NAUSEA. VITALS STABLE ON ROOM AIR. APPROX 0000 PATIENT HAD BLOODY NOSE, SATURATED WASH CLOTH WITH A HALF DOLLAR SIZE CLOT NOTED. APPLIED PRESSURE. BLEEDING SLOWED, BUT CONTINUED FOR APPROX 1 1/2 HOURS. NURSING LUMBER DRIVER ATTEMPTED TO CONTACT PHYSICIAN'S DIRECT LINE, LEFT VOICEMAIL. NO CALL RETURNED. NOSE BLEED STOPPED AT APPROX 0200. PATIENT SLEEPING IN BED AT THIS TIME. WILL CONTINUE TO MONITOR.
[2017-12-12 04:45] LABS: HEMOGLOBIN 9.1 gm/dL (12.0-15.0); MCH 30.3 pg (26.0-34.0); MCHC 32.5 g/dL (28.0-37.0); MCV 93.2 fL (80.0-100.0); MPV 6.8 fl. (7.2-11.1); RDW-CV 18.8 % (10.5-14.5); WBC 7.7 thou/uL (4.0-11.0)
[2017-12-12 05:05] LABS: ALBUMIN 2.9 g/dL (3.4-5.0); CALCIUM 8.3 mg/dL (8.5-10.1); CREATININE 1.9 mg/dL (0.6-1.3); POTASSIUM 3.1 mmol/L (3.5-5.1); TOTAL BILIRUBIN 0.2 mg/dL (<0.1-1.0); TOTAL PROTEIN 7.6 g/dL (6.4-8.2)
--- NOTE | 2017-12-12 05:25 | NUR ---
ROUNDED ON PATIENT AT 0500. NOSE BEGAN TO BLEED AGAIN. DR. NEGRETE CONTACTED ORDERS RECEIVED FOR AFRIN.
[2017-12-12 08:15] VITALS: BP 139/69
[2017-12-12 11:16] VITALS: BP 139/69
[2017-12-12] MEDS ORDERED: SKIN TREATMENT225 GM TOP (11:32)
[2017-12-12] MEDS ORDERED: FISH OIL 1,001000 M2 PO (11:45)
--- NOTE | 2017-12-12 12:06 | NUR ---
SARAH SPOKE TO HERNANDEZ AT [facility] AND SHE INFORMS OF BED AVAILABLITY AND TRANSPORTATION TIME OF 1300. CM SPOKE TO THE PATIENT AND HER DAUGHTER TO INFORM OF THIS AND THEY ARE IN AGREEMENT. SARAH SPOKE TO THE RN IN-CHARGE OF [facility] BED AVAILABILITY, TIME OF TRANSPORT, AND WHERE TO CALL REPORT. RN IN AGREEMENT. CM WILL REMAIN AVAILABLE TO ASSIST AND FOLLOW NEEDED.
[2017-12-12] MEDS ORDERED: VITAMIN D2000 UNIT PO (12:22)
[2017-12-12] MEDS ORDERED: IRON325 PO (12:26)
[2017-12-12 12:29] VITALS: BP 139/69
--- NOTE | 2017-12-12 14:43 | NUR ---
PATIENT LEFT UNIT BY WHEELCHAIR WITH TRANSPORTATION AT 1430. IV DC'D. EDUCATED PATIENT AND DAUGHTER ON DISCHARGE INSTRUCTIONS AND NEW MED SCRIPTS. PATIENT AND DAUGHTER VERBALIZED UNDERSTANDING. ALL BELONGINGS LEFT WITH PATIENT AND DAUGHTER.
[2017-12-12 14:49] VITALS: BP 139/69
== END 2017-12-12 14:49 | DRG 377 ==
LOC: M.ERS 11:48 → M.2W 13:40 → M.TBA-ER 13:40 → M.2W 14:43 → M.ORTHSURG 12-11 11:09
PROVIDERS: Emergency Medicine Emergency Medical Services; Internal Medicine; Internal Medicine Gastroenterology; ADMIT Internal Medicine
PROC: 30233N1 Transfusion of Nonautologous Red Blood Cells into Peripheral Vein, Percutaneous Approach (ICD-10-PCS; principal; 2017-12-07)
PROC: B24BZZ4 Ultrasonography of Heart with Aorta, Transesophageal (ICD-10-PCS; 2017-12-10)
PROC: 0DB98ZX Excision of Duodenum, Via Natural or Artificial Opening Endoscopic, Diagnostic (ICD-10-PCS; 2017-12-10)
DX: K92.2 Gastrointestinal hemorrhage, unspecified (principal); I50.31 Acute diastolic (congestive) heart failure; N18.4 Chronic kidney disease, stage 4 (severe); E44.1 Mild protein-calorie malnutrition; I12.9 Hypertensive chronic kidney disease with stage 1 through stage 4 chronic kidney disease, or unspecified chronic kidney disease; E78.5 Hyperlipidemia, unspecified; E11.42 Type 2 diabetes mellitus with diabetic polyneuropathy; E89.0 Postprocedural hypothyroidism; F03.90 Unspecified dementia, unspecified severity, without behavioral disturbance, psychotic disturbance, mood disturbance, and anxiety; Z96.651 Presence of right artificial knee joint; Z96.642 Presence of left artificial hip joint; R41.3 Other amnesia; Z66 Do not resuscitate; S00.81XA Abrasion of other part of head, initial encounter; K44.9 Diaphragmatic hernia without obstruction or gangrene; D50.0 Iron deficiency anemia secondary to blood loss (chronic); W18.30XA Fall on same level, unspecified, initial encounter; D47.3 Essential (hemorrhagic) thrombocythemia; F32.9 Major depressive disorder, single episode, unspecified; E11.22 Type 2 diabetes mellitus with diabetic chronic kidney disease; D63.1 Anemia in chronic kidney disease; I25.10 Atherosclerotic heart disease of native coronary artery without angina pectoris; Z68.29 Body mass index [BMI] 29.0-29.9, adult; Y93.89 Activity, other specified; Y92.89 Other specified places as the place of occurrence of the external cause; Y99.8 Other external cause status; I25.2 Old myocardial infarction; Z85.828 Personal history of other malignant neoplasm of skin; Z85.850 Personal history of malignant neoplasm of thyroid; Z95.1 Presence of aortocoronary bypass graft; Z95.5 Presence of coronary angioplasty implant and graft; Z90.49 Acquired absence of other specified parts of digestive tract; Z90.710 Acquired absence of both cervix and uterus; Z79.02 Long term (current) use of antithrombotics/antiplatelets; Z79.899 Other long term (current) drug therapy; Z88.0 Allergy status to penicillin; Z88.2 Allergy status to sulfonamides; Z88.6 Allergy status to analgesic agent; Z88.8 Allergy status to other drugs, medicaments and biological substances; Z83.3 Family history of diabetes mellitus; Z82.49 Family history of ischemic heart disease and other diseases of the circulatory system

== ENCOUNTER → 2018-07-28 | Outpatient (CLI) | payer OTHER ==
[~2018-07-28] MED LIST changes: +FISH OIL 1,001000 M2 PO; +IRON325 PO; +SKIN TREATMENT225 GM TOP; +VITAMIN D2000 UNIT PO
== END ==
LOC: M.ULTRA 12:50
DX: I73.9 Peripheral vascular disease, unspecified (principal); M79.661 Pain in right lower leg; M79.662 Pain in left lower leg; I10 Essential (primary) hypertension; E11.9 Type 2 diabetes mellitus without complications

== ENCOUNTER → 2018-08-19 | Outpatient (CLI) | payer OTHER | LOC: M.CT 11:21 | DX: R22.1 Localized swelling, mass and lump, neck (principal); M40.294 Other kyphosis, thoracic region; R13.10 Dysphagia, unspecified ==

== ENCOUNTER 2018-11-26 08:09 | Inpatient (IN) | payer OTHER ==
[~2018-11-26] VITALS: Ht 152.4 cm; Wt 84.4 kg
[2018-11-26 08:11] VITALS: BP 194/95
[2018-11-26] MEDS ORDERED: VITAMIN B6 (08:37)
[2018-11-26] MEDS ORDERED: ACIDOPHILUS1 EAC4 PO (08:37)
[2018-11-26] MEDS ORDERED: B12INJ IM (08:39)
[2018-11-26 08:40] LABS: HEMATOCRIT 31.9 % (37.0-47.0); HEMOGLOBIN 10.9 gm/dL (12.0-15.0); MCH 32.8 pg (26.0-34.0); MCHC 34.3 g/dL (28.0-37.0); MCV 95.8 fL (80.0-100.0); MPV 7.8 fl. (7.2-11.1); NUCLEATED RBCS 0 /100WBC; PLATELET COUNT* 383 thou/uL (150-400); RBC 3.33 mil/uL (4.20-5.00); RDW-CV 13.5 % (10.5-14.5); WBC 5.8 thou/uL (4.0-11.0)
[2018-11-26] MEDS ORDERED: OYSTER SHELL C1 EAC4 PO (08:40)
[2018-11-26] MEDS ORDERED: MAGOX 400400 MG PO (08:42)
[2018-11-26] MEDS ORDERED: DEEP SEA NASAL44 M1 NASAL (08:43)
[2018-11-26] MEDS ORDERED: MAPAP325 MG PO (08:45)
[2018-11-26] MEDS ORDERED: HYDROCODONE-AP1 EAC6 PO (08:47)
[2018-11-26] MEDS ORDERED: ZANAFLEX2 MG PO (08:47)
[2018-11-26 08:57] LABS: CREATININE 2.3 mg/dL (0.6-1.3); POTASSIUM 4.2 mmol/L (3.5-5.1)
[2018-11-26 09:03] LABS: ALBUMIN 3.2 g/dL (3.4-5.0); MAGNESIUM 1.9 mg/dL (1.8-2.4); TOTAL BILIRUBIN 0.2 mg/dL (<0.1-1.0); TOTAL PROTEIN 7.8 g/dL (6.4-8.2); TROPONIN-I LEVEL 0.09 ng/mL (<0.06)
[2018-11-26 09:14] LABS: ABSOLUTE EOSINOPHILS 0.2 thou/uL (0.0-0.7); ABSOLUTE MONOCYTES 0.3 thou/uL (0.0-1.2); ABSOLUTE NEUTROPHILS 3.2 thou/uL (1.6-8.1); ATYPICAL LYMPHS 6 %; PLATELET ESTIMATE ADEQUATE
--- NOTE | 2018-11-26 10:25 | EKG ---
[place] [address] ELECTROCARDIOGRAM REPORT Name: JACKSON MCFARLANE Room: [place] [address] ADM IN ..#: [id number] Admission: 11/26/18 Attend Phys: Ricardo Swan MD Discharge: Date of : 34 Report #: [id number] THIS REPORT FOR: //name// [facility] ED Test Date: 2018-11-26 Test Time: 08:12:08 Pat Name: JACKSON MCFARLANE Department: Room: [facility] Gender: F Staff Attorney: : 1935 Requested By: Stewart Chow Order Number: [id number] MD: Dorian White Measurements Intervals [place] Rate: 77 P: -16 WI: 262 QRS: -53 QRSD: 139 T: 46 QT: 471 QTc: 534 Interpretive Statements Sinus rhythm Prolonged WI interval Probable left atrial enlargement RBBB and LAFB Left ventricular hypertrophy Compared to ECG 12/05/2017 12:22:44 No significant changes Electronically Signed On 11-26-2018 10:24:57 DELI CLERK by Dorian White [email or web address] <ELECTRONICALLY SIGNED> By: Dorian White MD, FAC 11/26/18 1024 1 1 Dorian White MD, [facility] /EPI
[2018-11-26 12:53] VITALS: BP 182/80
[2018-11-26 13:00] VITALS: BP 187/71
--- NOTE | 2018-11-26 15:24 | NUR ---
PT ADMITTED TO TELE FLOOR. ACCOMPANIED BY DAUGHTER AND ER NURSE. ON A STRETCHER. PT LIVES AT A ASSISTED AND IS WHEELCHAIR BOUND. SR 1ST AV BLOCK BBB ON LINEN GRADER. O2 SATURATION ABOVE 95% ON 2 L NC. COMPLAIND OF NAUSEA. ZOFRAN GIVEN. BP 182.71. HYDRALIZINE GIVEN ORDERED. WILL RECHECK BP. PT VSS. PT NPO FOR CARDIAC CONSULT. TROPONIN 0.[address] SAAVEDRA PAGEShankar. SAYS TO CALL HIM IF TROPONIN GREATER THAN 5 AND THAT PT COULD EAT. DIET ORDERED FOR DINNER TIME. MEDICATION RESTARTED PER DR ROJAS. IV LINE PATENT. ADMISSION HX AND ASSESSEMENT PERFORMED. CALL LIGHT AT REACH. PT SAYS SHE HAS FALLEN IN THE PAST 3 [address]. FALL PRECAUTION IN PLACE. WILL CONTINUE TO MONITOR.
[2018-11-26 15:41] VITALS: BP 170/69
[2018-11-26 20:00] VITALS: BP 161/64
[2018-11-27] VITALS: BP 147/57
[2018-11-27 01:01] LABS: ABSOLUTE BASOPHILS 0.1 thou/uL (0.0-0.2); ABSOLUTE EOSINOPHILS 0.2 thou/uL (0.0-0.7); ABSOLUTE LYMPHOCYTES 1.3 thou/uL (0.8-5.3); ABSOLUTE MONOCYTES 0.5 thou/uL (0.0-1.2); ABSOLUTE NEUTROPHILS 2.7 thou/uL (1.6-8.1); BASOPHILS 1.1 %; EOSINOPHILS 4.3 %; HEMATOCRIT 30.5 % (37.0-47.0); HEMOGLOBIN 10.4 gm/dL (12.0-15.0); LYMPHOCYTES 26.9 %; MCH 32.4 pg (26.0-34.0); MCHC 34.1 g/dL (28.0-37.0); MCV 95.1 fL (80.0-100.0); MPV 7.4 fl. (7.2-11.1); NUCLEATED RBCS 0 /100WBC; PLATELET COUNT* 380 thou/uL (150-400); POLYS 56.7 %; RBC 3.21 mil/uL (4.20-5.00); RDW-CV 13.6 % (10.5-14.5); WBC 4.7 thou/uL (4.0-11.0)
[2018-11-27 01:44] LABS: CALCIUM 8.2 mg/dL (8.5-10.1); CREATININE 2.2 mg/dL (0.6-1.3); POTASSIUM 3.8 mmol/L (3.5-5.1); TROPONIN-I LEVEL 0.13 ng/mL (<0.06)
--- NOTE | 2018-11-27 02:28 | NUR ---
PATIENT RESTED IN BED, NO ACUTE CHANGES. PATIENT DID NOT SHOW SIGNS OF DISTRESS. FALL PRECAUTIONS IN PLACE, CALL LIGHT WITH IN REACH, HOURLY ROUNDING OBSERED. PATIENT DID NOT COMPLAIN OF PAIN.
[2018-11-27 04:00] VITALS: BP 161/62
[2018-11-27 08:00] VITALS: BP 182/73
[2018-11-27 08:40] VITALS: BP 182/73
[2018-11-27] MEDS ORDERED: COREG6.25 MG PO (10:10)
[2018-11-27] MEDS ORDERED: COZAAR 25 MG TA25 M1 PO (10:10)
[2018-11-27 10:11] VITALS: BP 182/73
--- NOTE | 2018-11-27 12:52 | NUR ---
Pt from [facility], discharging back today. Transportation arranged through [employer] for p/u between 2-230pm
--- NOTE | 2018-11-27 13:42 | CON ---
[address] [address] CONSULTATION Name: JACKSON MCFARLANE Room: [address] IN M.R.#: [id number] Admission: 11/26/18 Attend Phys: Ricardo Swan MD Discharge: Date of : 34 Report #: [id number] THIS REPORT FOR: //name// CC: Ricardo Loo DATE OF SERVICE: 11/26/2018 PRIMARY CARE PHYSICIAN: Dr. Julia Loo. PROFESSIONAL BUILDER: Dr. Venegas. CHIEF COMPLAINT: Chest pain. HISTORY OF PRESENT ILLNESS: The patient is an 83-year-old woman with prior CABG, who presented with an episode of resting chest discomfort. It is not associated with shortness of breath or orthopnea, but she does have some occasional PND, but not recently. She presented with an ECG, which demonstrated bifascicular block, which is chronic, but no diagnostic ST segment changes. Initial cardiac troponin levels are fairly unremarkable, there is a slight trend upwards. At the time of my evaluation, the patient is symptom-free. She really had been symptom-free. She had last seen Dr. Venegas over a year ago. She denies palpitations or heart racing. She presents in sinus rhythm. She denies neurologic symptoms of slurred speech, numbness, weakness or visual changes. SOCIAL HISTORY: She is a nonsmoker. She just recently moved into a residential care facility. PAST MEDICAL HISTORY: She has remote history of CABG in the year 1999. Prior to that, she had coronary intervention. Since then, she has not had any revascularization. She has chronic kidney disease. She has refused hemodialysis, currently she is not being followed by Nephrology. She has an ASPIRIN allergy, so she is on Plavix daily. She has hypertension, hyperlipidemia, diabetes mellitus, peripheral neuropathy, thyroid cancer. PAST SURGICAL HISTORY: Prior hip, knee, and bypass surgery. Prior thyroidectomy. HOME MEDICATIONS: Include lactobacillus vitamins, magnesium oxide, hydrocodone, clopidogrel 75 mg daily, Cymbalta 60 mg daily, Lasix 20 mg daily, gemfibrozil 600 mg p.o. daily, Imdur 60 mg daily, Neurontin 300 mg q.i.d., metoprolol 12.5 mg p.o. b.i.d., Amaryl, Synthroid 150 mcg daily, iron sulfate 325 mg daily. REVIEW OF SYSTEMS: [place] [address] CONSULTATION Name: JACKSON MCFARLANE ANN Room: [address] IN [facility]#: [id number] Admission: 11/26/18 Attend Phys: Ricardo Swan MD Discharge: Date of : 34 Report #: [id number] GENERAL: No fevers or chills. PULMONARY: She denies wheezing or cough. ENDOCRINE: Positive diabetes. RENAL: Positive kidney disease. Positive leg swelling. NEUROLOGIC: Denies headaches, blurry vision, slurred speech. THROAT: Denies any dysphagia. EYES: Denies blurred vision or loss of vision. CARDIOVASCULAR: Positive chest pain and discomfort. PULMONARY: Positive occasional shortness of breath, no cough. PHYSICAL EXAMINATION: VITAL SIGNS: Blood pressure is 170/69, pulse 74 and O2 sats 97% on 2 liters nasal cannula. GENERAL: Pleasant elderly female. She is alert, oriented, no apparent distress. NECK: Supple. No jugular venous distention. CARDIOVASCULAR: Regular. There is faint systolic murmur. LUNGS: Clear to auscultation bilaterally. ABDOMEN: Soft, nontender. EXTREMITIES: No peripheral edema. There are no focal deficits. IMAGING: Chest x-ray with mild cardiomegaly, no infiltrates. LABORATORY DATA: Hemoglobin is 10.9, white blood cell count is 5.8, platelet count is 383,000. Sodium is 140, potassium 4.2, chloride 104, CO2 is 25, BUN is 41, creatinine is 2.3, GFR is 20. Troponin I is 0.13 and 0.09. EKG shows a sinus rhythm, bifascicular block. Older Data: 2016, nuclear stress test, normal resting perfusion images without stress imaging. Apparently, the patient did not return for the stress portion. Transthoracic echocardiogram 12/05/2017 showed ejection fraction 55-60%, mild aortic stenosis, mild concentric left ventricular hypertrophy, mild mitral regurgitation. IMPRESSION: 1. Angina. 2. Malignant hypertension. 3. Status post coronary artery bypass graft. 4. Severe chronic kidney disease. 5. Mild aortic valve stenosis. PLAN: This particular patient presents with an episode of chest discomfort, likely angina. She is currently ruling out for an acute myocardial infarction. After a long discussion with the patient and her daughter, they are not wishing to proceed with an aggressive invasive strategy and she also has considerable [address] [address] CONSULTATION Name: JACKSON MCFARLANE Room: M.215-P ADM IN M.R.#: [id number] Admission: 11/26/18 Attend Phys: Ricrado Swan MD Discharge: Date of : 34 Report #: [id number] risk associated with this given her advanced age as well as severe chronic kidney disease. Based on this, I would like to treat her with a conservative medical treatment approach focusing on her blood pressure and continue with antiplatelet therapy with Plavix. Her cardiac troponin level is slightly abnormal, but this could be secondary to her kidney disease as well. <ELECTRONICALLY SIGNED> By: Dorian White MD, FACC 11/27/18 1342 1558 Kirk White MD, FACC /nt
[2018-11-27 13:46] VITALS: BP 182/73
--- NOTE | 2018-11-27 14:05 | NUR ---
VSS, ASSUMED CARE THIS AM, ASSESSMENT PERFORMED AND CHARTED, FALL PRECAUTIONS IN PLACE AND CALL LIGHT IN REACH, PT IS A&O4 AND UP WITH ONE TO CHAIR, PT GOAL IS TO SIT UP IN CHAIR, PT IS INCONT OF B/B SHE IS ON RA, TRACINFG SR ON THE MONITOR, PT DENIES ANY PAIN, PT HAS BEEN D/C BACK TO SNF, CALLED REPORT AND TALKED TO ROVERTO, GAVE CALL BACK NUMBER, SHE DENIES ANY QUESTIONS AT TIME OF D/C, I TOOK OFF TELE MONITOR, GAVE D/C FOLDER TO TRANSPORTER, PT TAKEN OUT VIA WHEEL CHAIR VAN, PT DENIES ANY QUESTIONS AT TIME OF D/C HOURLY ROUNDS COMPLETED AND CHART CHECKED.
== END 2018-11-27 14:06 | DRG 682 ==
LOC: M.ERS 08:09 → M.2W 09:37 → M.TBA-ER 09:37 → M.2W 12:53
PROVIDERS: Emergency Medicine Emergency Medical Services; ADMIT Internal Medicine
DX: N17.9 Acute kidney failure, unspecified (principal); I21.4 Non-ST elevation (NSTEMI) myocardial infarction; I25.110 Atherosclerotic heart disease of native coronary artery with unstable angina pectoris; N18.4 Chronic kidney disease, stage 4 (severe); E11.42 Type 2 diabetes mellitus with diabetic polyneuropathy; I25.10 Atherosclerotic heart disease of native coronary artery without angina pectoris; Z96.642 Presence of left artificial hip joint; Z96.651 Presence of right artificial knee joint; F03.90 Unspecified dementia, unspecified severity, without behavioral disturbance, psychotic disturbance, mood disturbance, and anxiety; E78.5 Hyperlipidemia, unspecified; E89.0 Postprocedural hypothyroidism; I12.9 Hypertensive chronic kidney disease with stage 1 through stage 4 chronic kidney disease, or unspecified chronic kidney disease; E11.22 Type 2 diabetes mellitus with diabetic chronic kidney disease; I35.0 Nonrheumatic aortic (valve) stenosis; M19.90 Unspecified osteoarthritis, unspecified site; I25.2 Old myocardial infarction; Z85.850 Personal history of malignant neoplasm of thyroid; Z95.1 Presence of aortocoronary bypass graft; Z90.710 Acquired absence of both cervix and uterus; Z90.49 Acquired absence of other specified parts of digestive tract; Z88.6 Allergy status to analgesic agent; Z88.0 Allergy status to penicillin; Z88.2 Allergy status to sulfonamides; Z88.8 Allergy status to other drugs, medicaments and biological substances; Z82.49 Family history of ischemic heart disease and other diseases of the circulatory system; Z83.3 Family history of diabetes mellitus; Z79.899 Other long term (current) drug therapy

== ENCOUNTER 2018-12-07 08:24 | Inpatient (IN) | payer OTHER ==
[~2018-12-07] VITALS: Ht 152.4 cm; Wt 79.8 kg
[~2018-12-07 08:24] MED LIST changes: +ACIDOPHILUS1 EAC4 PO; +B12INJ IM; +COREG6.25 MG PO; +COZAAR 25 MG TA25 M1 PO; +DEEP SEA NASAL44 M1 NASAL; +HYDROCODONE-AP1 EAC6 PO; +MAGOX 400400 MG PO; +OYSTER SHELL C1 EAC4 PO; +VITAMIN B6; +ZANAFLEX2 MG PO
[2018-12-07 08:26] VITALS: BP 182/78
[2018-12-07 08:56] LABS: ABSOLUTE LYMPHOCYTES 0.8 thou/uL (0.8-5.3); ABSOLUTE MONOCYTES 0.3 thou/uL (0.0-1.2); ABSOLUTE NEUTROPHILS 3.2 thou/uL (1.6-8.1); BASOPHILS 0.4 %; EOSINOPHILS 0.9 %; HEMATOCRIT 35.6 % (37.0-47.0); HEMOGLOBIN 12.3 gm/dL (12.0-15.0); LYMPHOCYTES 17.9 %; MCH 32.7 pg (26.0-34.0); MCHC 34.4 g/dL (28.0-37.0); MCV 95.1 fL (80.0-100.0); MPV 7.3 fl. (7.2-11.1); NUCLEATED RBCS 0 /100WBC; PLATELET COUNT* 406 thou/uL (150-400); POLYS 73.8 %; RBC 3.75 mil/uL (4.20-5.00); RDW-CV 13.7 % (10.5-14.5); WBC 4.4 thou/uL (4.0-11.0)
[2018-12-07] MEDS ORDERED: VITAMIN D5000 UNIT PO (08:59)
[2018-12-07] MEDS ORDERED: SENNA PLUS TAB1 EACH PO (09:00)
[2018-12-07] MEDS ORDERED: LOPRESSOR25 PO (09:00)
[2018-12-07] MEDS ORDERED: PLAVIX 75 MG TA75 M1 PO (09:00)
[2018-12-07] MEDS ORDERED: VITAMIN D50000 UNIT PO (09:03)
[2018-12-07 09:04] LABS: ANION GAP 12 mmol/L (7-16); BUN 40 mg/dL (7-18); CALCIUM 7.8 mg/dL (8.5-10.1); CHLORIDE 102 mmol/L (98-107); CO2 27 mmol/L (21-32); CREATININE 2.8 mg/dL (0.6-1.3); GLUCOSE 115 mg/dL (70-99); POTASSIUM 3.3 mmol/L (3.5-5.1); SODIUM 141 mmol/L (136-145)
[2018-12-07 09:06] LABS: APTT 25.9 Seconds (25.0-31.3); PROTIME 9.8 Seconds (9.20-11.50)
[2018-12-07] MEDS ORDERED: DEEP SEA NASAL44 M1 NASAL (09:07)
[2018-12-07] MEDS ORDERED: MILK OF MA400 MG/5 M PO (09:08)
[2018-12-07] MEDS ORDERED: MAPAP325 MG PO (09:08)
[2018-12-07] MEDS ORDERED: MIRALAX17 GM PO (09:08)
[2018-12-07] MEDS ORDERED: PHENAZOPYRIDIN200 M2 PO (09:09)
[2018-12-07] MEDS ORDERED: NORCO 5-325 TA1 EACH PO (09:11)
[2018-12-07] MEDS ORDERED: STIMULANT LAXA1 EACH PO (09:11)
[2018-12-07] MEDS ORDERED: ZANAFLEX2 MG PO (09:11)
[2018-12-07 09:24] LABS: ALBUMIN 3.7 g/dL (3.4-5.0); ALKALINE PHOSPHATASE 96 U/L (46-116); CK-MB MASS 3.6 ng/mL (<0.5-3.6); NT-PRO BRAIN NAT PEPTIDE 858 pg/mL (<300); SGOT 14 U/L (15-37); SGPT 19 U/L (30-65); TOTAL BILIRUBIN 0.3 mg/dL (<0.1-1.0); TROPONIN-I LEVEL <0.06 ng/mL (<0.06)
--- NOTE | 2018-12-07 10:22 | EKG ---
[place] [address] ELECTROCARDIOGRAM REPORT Name: JACKSON MCFARLANE Room: [facility].#: [id number] Admission: 12/07/18 Attend Phys: Discharge: Date of : 34 Report #: [id number] THIS REPORT FOR: //name// [facility] ED Test Date: 2018-12-07 Test Time: 08:43:51 Pat Name: JACKSON DENYS Department: Room: Gender: F Parboiler: DAVID : 1935 Requested By: Alec Bautista Order Number: [id number] MD: Max Kruse Measurements Intervals [place] Rate: 62 P: 0 HI: 205 QRS: -47 QRSD: 159 T: -3 QT: 563 QTc: 572 Interpretive Statements Sinus rhythm with first degree av block Probable left atrial enlargement RBBB and LAFB Left ventricular hypertrophy Compared to ECG 11/26/2018 08:12:08 no change Electronically Signed On 12-07-2018 10:22:36 CHARGING CAR OPERATOR by Max Kruse [email or web address] <ELECTRONICALLY SIGNED> By: Max Kruse MD, [facility] 12/07/18 1022 2 Max Kruse MD, FAC /EPI
[2018-12-07 10:37] LABS: URINE BILIRUBIN NEGATIVE (Negative); URINE BLOOD TRACE (Negative); URINE CLARITY CLEAR; URINE COLOR YELLOW; URINE GLUCOSE-RANDOM NEGATIVE (Negative); URINE KETONES NEGATIVE (Negative); URINE LEUKOCYTES-REFLEX 1+ (Negative); URINE NITRITE-REFLEX NEGATIVE (Negative); URINE PROTEIN 2+ (Negative); URINE SPECIFIC GRAVITY 1.025 (1.005-1.030); URINE UROBILINOGEN 0.2 E.U./dl (0.2-1.0)
[2018-12-07 10:45] LABS: SQUAMOUS >10 Many /LPF (0-3); URINE WBC-REFLEX 6-15 Few /HPF (0-5)
[2018-12-07 10:46] LABS: CASTS None Seen /LPF (None Seen); CRYSTALS None Seen /LPF (None Seen); MUCUS >6 Heavy strn/LPF (None Seen); URINE RBC 3-10 Few /HPF (0-2)
--- NOTE | 2018-12-07 12:13 | NUR ---
PT GIVEN SANDWICH, APPLESAUCE AND DRINK
[2018-12-07 13:13] VITALS: BP 147/43
[2018-12-07 14:00] VITALS: BP 179/68
[2018-12-07 15:22] VITALS: BP 179/68
--- NOTE | 2018-12-07 15:30 | NUR ---
PT ADMITTED ON TELE FLOOR FROM ER AT 1330. SR ON PAINT PREPPER. ON RA AND SATURATION IS 99%. BP 179/68 HYDRALIZINE GIVEN. WILL MONITOR AGAIN. BLOOD SUGAR IS 77 AT 1400. WILL MONITOR EVERY ONE HOUR. D5O IN D5 NS INFUSING ORDERED 80CC PER HOUR. PT IS WHEELCHAIR BOUND FROM INTERMEDIATE. PT FAMILY IN ROOM WITH HER. PT STABLE, ORANGE JUICE OFFERED. FOOD OFFERED BUT PT REFUSES NOW. ALSO PT REFUSES SCDs. ADMISSION ASSESSMENT AND HISTORY PERFORMED AT BEDSIDE.
--- NOTE | 2018-12-07 17:44 | NUR ---
BLOOD SUGAR MEASURED Q1 HOUR. BLOOD SUGAR 46 AT 1600. ORANGE JUICE GIVEN. IV FLUID RATE INCREASED TO 100CC PER HOUR ORDERED. D50 IVPUSH AVAILABLE NEEDED. BP HIGH BUT HYDRALIZINE HAS BEEN GIVEN CHICHO CONTINUE TO MONITOR. PT ATE DINNER. AND CRACKERS WITH PEANUT GIVEN AT DINNER TIME. PT IS STABLE BUT STATES THAT SHE FEELS WEAK. ALSO HAD AN EPISODE OF CHEST PAIN AT AROUND 1700 LEVEL 4. BUT NO MORE CHEST PAIN AT THIS TIME.
[2018-12-07 20:00] VITALS: BP 170/51
[2018-12-08] VITALS: BP 178/60
[2018-12-08 04:00] VITALS: BP 145/55
--- NOTE | 2018-12-08 07:57 | NUR ---
Pt a/o x 4. RA/O2 2L NC. Accu-check Q1HR per order. IVF infusing per order. Frequent urine incontinence with frequent perineal care and linen/pad change. Bed bath given with complete bed linen and gown change. W/C bound prior to admission. Bed alarm. Fall precautions maintained. Call light within reach. Bedside shift change complete with incoming day-shift RN.
[2018-12-08 08:00] VITALS: BP 189/56
--- NOTE | 2018-12-08 10:27 | NUR ---
ASSUMED PT CARE AT 0730 REPORT RECEIVED FROM NURSE. PT IS AOX3 A FLUTTER ON WATERFRONT DIRECTOR. ON RA AND SATURATION IS ABOVE 95%. COMPLAINS OF DISCOMFORT IN CHEST. PAIN PILL GIVEN. PT SAYS SHE FEELS BETTER. ACCUCHECK REDUCED TO EVERY FOUR HOURS PER DR MCCOY. PT BLOOD SUGAR HAS IMPROVED THROUGHOUT THE NIGHT. ACCUCHECK 143 THIS AM AT 0800. IV FLUID CHANGED TO D5 1/2 NS. ROCEPHIN GIVEN. Q2TURN PERFORMED. WILL CONTINUE TO MONITOR PT
[2018-12-08 11:57] VITALS: BP 134/53
--- NOTE | 2018-12-08 11:58 | NUR ---
PT BLOOD SUGAR AT 1200 IS 182. WILL CONTINUE TO MONITOR
--- NOTE | 2018-12-08 15:15 | NUR ---
Pt is A&O. Resides at [facility] and is current with [facility]. Spoke with XUAN Suh at [facility] and she stated that at dc, she will need to come out and assess Pt to determine if she can return to [facility] vs. if they Pt will need skilled. Pt's goal is to return to [facility] at dc. Pt is wc bound, states that she is able to complete her own transfers. Hx of [facility]. Hx of [facility]. Following [facility] [phone]
[2018-12-08 15:33] VITALS: BP 152/67
[2018-12-08 20:00] VITALS: BP 166/58
[2018-12-09] VITALS (7 sets, daily range): BP systolic 112–210; BP diastolic 61–82
[2018-12-09 05:59] LABS: HEMATOCRIT 29.2 % (37.0-47.0); MCH 33.2 pg (26.0-34.0); MCV 94.8 fL (80.0-100.0); MPV 7.7 fl. (7.2-11.1); RBC 3.08 mil/uL (4.20-5.00); RDW-CV 13.7 % (10.5-14.5); WBC 4.8 thou/uL (4.0-11.0)
[2018-12-09 06:06] LABS: HEMOGLOBIN 10.2 gm/dL (12.0-15.0)
[2018-12-09 06:08] LABS: CREATININE 2.1 mg/dL (0.6-1.3); MAGNESIUM 1.7 mg/dL (1.8-2.4); POTASSIUM 3.5 mmol/L (3.5-5.1)
--- NOTE | 2018-12-09 08:03 | NUR ---
Pt A/O x 4. RA. VSS. Able to turn and reposition in bed independently. Multiple incontinence occurrences with frequent incontinence care. Accu-checks Q4HRS. Blood glucose stable. No apparent distress noted. Bed alarm on. Fall precautions maintained. Call light within reach. Shift change completed with incoming day-shift RN.
--- NOTE | 2018-12-09 14:34 | NUR ---
CM faxed info to XUAN Suh at [facility], per XUAN, she believes that Pt is back to baseline and should be able to return to [facility] at dc, with HH.
--- NOTE | 2018-12-09 15:45 | NUR ---
assumed pt care at 0730 report received from nurse. pt is aox4 sinus rythm 1st av block on athletic monitor. o2 saturation is above 95% on ra. pt is incontinent of bladder. urine culture oending for collection by nurse. pt has wet the bed multiple time during the day. daughter visited this am. pt is compliant with care. nurse noticed cold and swollen feet. iv fluid stopped as ordered by dr. scales q4 hours has been stable and above 150. medsurg ordered for pt by dr julio. tele monitor dc'd. blood sugar medication to be started tomorrow morning with breakfast as ordered. will continue to monitor pt.
[2018-12-09 21:15] LABS: URINE BILIRUBIN NEGATIVE (Negative); URINE BLOOD NEGATIVE (Negative); URINE CLARITY CLEAR; URINE COLOR YELLOW; URINE GLUCOSE-RANDOM NEGATIVE (Negative); URINE KETONES NEGATIVE (Negative); URINE LEUKOCYTES NEGATIVE (Negative); URINE NITRITE NEGATIVE (Negative); URINE PROTEIN 2+ (Negative); URINE UROBILINOGEN 0.2 E.U./dl (0.2-1.0)
[2018-12-09 21:24] LABS: HYALINE CASTS 0-3 Few /LPF (None Seen); MUCUS None Seen strn/LPF (None Seen); SQUAMOUS 4-10 Moderate /LPF (0-3)
[2018-12-09 21:25] LABS: BACTERIA None Seen /HPF (None Seen); CRYSTALS None Seen /LPF (None Seen); URINE RBC 0-2 Rare /HPF (0-2); URINE WBC 0-5 Rare /HPF (0-5)
--- NOTE | 2018-12-10 05:20 | NUR ---
ASSUMED PT CARE AT 1930. ASSESSMENT COMPLETED CHARTED. ABLE TO MAKE NEEDS KNOWN. PT RESTING IN BED AT THIS TIME, DIDNT FALL ASLEEP TILL LATE DUE TO NORMAL SLEEPING TIMES. UP WITH 2 ASSIST FROM CHAIR TO BED. NO C/O PAIN OR DISCOMFORT. WILL CONTINUE TO MONITOR.
[2018-12-10 08:15] VITALS: BP 163/68
[2018-12-10] MEDS ORDERED: AMARYL2 MG PO (12:25)
[2018-12-10] MEDS ORDERED: MACROBID 100 M100 M1 PO (12:25)
[2018-12-10] MEDS ORDERED: NEURONTIN 300300 M1 PO (12:25)
[2018-12-10] MEDS ORDERED: LOPRESSOR25 PO (12:32)
[2018-12-10 12:33] VITALS: BP 163/68
--- NOTE | 2018-12-10 13:31 | NUR ---
EXCAVATING SUPERVISOR SPOKE TO THE PATIENT AND HER DTR TO DISCUSS THE PATIENT'S D/C TODAY BACK TO THE [facility] AT 1530. PATIENT AND DTR IN AGREEMENT. D/C TAXONOMY TEACHER CONTACTED THE [facility] AND FAXED THE PATIENT'S D/C ORDERS. D/C TAXONOMY TEACHER SPOKE TO [facility] AND ARRANGED TRANSPORT FOR 1530. D.C TAXONOMY TEACHER INFORMED THE RN IN-CHARGE OF THE PATIENT OF THE PATIENT'S TIME OF TRANSPORT. RN IN AGREEMENT. CM WILL REMAIN AVAILABLE TO ASSIST AND FOLLOW NEEDED. [facility] [phone] [facility] TRANSPORT [phone]
--- NOTE | 2018-12-10 15:44 | NUR ---
ASSUMED CARE OF PT AROUND 0730 THIS AM. REFER TO ASSESSMENT. PT HAS ORDERS TO DC HOME TO [facility]. CASE MANAGEMENT SET UP HOME HEALTH WITH PT/OT FOR PT. DC INSTRUCTIONS SENT WITH PT TO [facility]. NO OTHER CONCERNS AT THIS TIME. CLWR. WCTM.
== END 2018-12-10 15:57 | DRG 682 ==
LOC: M.ERS 08:24 → M.2W 11:43 → M.TBA-ER 11:43 → M.2W 13:26
PROVIDERS: Family Medicine; ADMIT Internal Medicine
DX: N17.9 Acute kidney failure, unspecified (principal); G93.41 Metabolic encephalopathy; N39.0 Urinary tract infection, site not specified; A08.4 Viral intestinal infection, unspecified; E11.40 Type 2 diabetes mellitus with diabetic neuropathy, unspecified; N18.4 Chronic kidney disease, stage 4 (severe); I25.10 Atherosclerotic heart disease of native coronary artery without angina pectoris; Z96.642 Presence of left artificial hip joint; Z96.651 Presence of right artificial knee joint; E89.0 Postprocedural hypothyroidism; F03.90 Unspecified dementia, unspecified severity, without behavioral disturbance, psychotic disturbance, mood disturbance, and anxiety; E11.649 Type 2 diabetes mellitus with hypoglycemia without coma; E11.22 Type 2 diabetes mellitus with diabetic chronic kidney disease; I12.9 Hypertensive chronic kidney disease with stage 1 through stage 4 chronic kidney disease, or unspecified chronic kidney disease; Z95.1 Presence of aortocoronary bypass graft; Z90.710 Acquired absence of both cervix and uterus; Z90.49 Acquired absence of other specified parts of digestive tract; Z88.6 Allergy status to analgesic agent; Z88.0 Allergy status to penicillin; Z88.2 Allergy status to sulfonamides; Z88.8 Allergy status to other drugs, medicaments and biological substances; Z82.49 Family history of ischemic heart disease and other diseases of the circulatory system; Z83.3 Family history of diabetes mellitus; Z85.850 Personal history of malignant neoplasm of thyroid; I25.2 Old myocardial infarction

== ENCOUNTER 2019-04-30 20:34 | Emergency (ER) | payer OTHER ==
[~2019-04-30] VITALS: Ht 167.6 cm; Wt 86.9 kg
[~2019-04-30 20:34] MED LIST changes: +MACROBID 100 M100 M1 PO; +MILK OF MA400 MG/5 M PO; +NORCO 5-325 TA1 EACH PO; +SENNA PLUS TAB1 EACH PO; +STIMULANT LAXA1 EACH PO; +VITAMIN D5000 UNIT PO; +VITAMIN D50000 UNIT PO
[2019-04-30 21:15] LABS: HEMOGLOBIN 11.1 gm/dL (12.0-15.0); NUCLEATED RBCS 0 /100WBC; WBC 7.6 thou/uL (4.0-11.0)
[2019-04-30 21:17] LABS: ABSOLUTE BASOPHILS 0.1 thou/uL (0.0-0.2); ABSOLUTE EOSINOPHILS 0.3 thou/uL (0.0-0.7); ABSOLUTE LYMPHOCYTES 1.4 thou/uL (0.8-5.3); ABSOLUTE MONOCYTES 0.7 thou/uL (0.0-1.2); BASOPHILS 1.1 %; EOSINOPHILS 4.4 %; HEMATOCRIT 33.7 % (37.0-47.0); MCH 30.7 pg (26.0-34.0); MCV 93.1 fL (80.0-100.0); MONOCYTES 9.4 %; MPV 7.1 fl. (7.2-11.1); PLATELET COUNT* 430 thou/uL (150-400); POLYS 66.1 %; RBC 3.62 mil/uL (4.20-5.00); RDW-CV 14.5 % (10.5-14.5)
[2019-04-30 21:28] LABS: CALCIUM 7.4 mg/dL (8.5-10.1); CREATININE 3.2 mg/dL (0.6-1.3); POTASSIUM 4.1 mmol/L (3.5-5.1)
[2019-04-30 21:33] LABS: ALBUMIN 3.3 g/dL (3.4-5.0); TOTAL BILIRUBIN 0.3 mg/dL (<0.1-1.0); TOTAL PROTEIN 8.1 g/dL (6.4-8.2); TROPONIN-I LEVEL 0.09 ng/mL (<0.06)
[2019-04-30 22:54] VITALS: BP 182/76
--- NOTE | 2019-05-03 14:30 | EKG ---
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: : 1935 Requested By: Alec Bautista Order Number: [id number] MD: Mj Guadalupe Measurements Intervals [place] Rate: 87 P: -55 AK: 210 QRS: -55 QRSD: 143 T: 71 QT: 449 QTc: 541 Interpretive Statements Sinus or ectopic atrial rhythm RBBB and LAFB Left ventricular hypertrophy Compared to ECG 12/07/2018 08:43:51 Rate has increased First degree AV block no longer present Electronically Signed On 05-03-2019 14:30:33 CDT by Mj Guadalupe [email or web address] <ELECTRONICALLY SIGNED> By: Mj Guadalupe MD, [facility] 05/03/19 1430 46 46 Mj Guadalupe MD, [facility] /EPI
== END 2019-04-30 22:54 ==
LOC: M.ERS 20:34
PROVIDERS: Family Medicine
DX: I12.0 Hypertensive chronic kidney disease with stage 5 chronic kidney disease or end stage renal disease (principal); E11.22 Type 2 diabetes mellitus with diabetic chronic kidney disease; N18.5 Chronic kidney disease, stage 5; R41.82 Altered mental status, unspecified; Z51.5 Encounter for palliative care; E11.42 Type 2 diabetes mellitus with diabetic polyneuropathy; I25.10 Atherosclerotic heart disease of native coronary artery without angina pectoris; F03.90 Unspecified dementia, unspecified severity, without behavioral disturbance, psychotic disturbance, mood disturbance, and anxiety; Z88.2 Allergy status to sulfonamides; Z88.0 Allergy status to penicillin; Z88.6 Allergy status to analgesic agent; Z88.8 Allergy status to other drugs, medicaments and biological substances; Z90.49 Acquired absence of other specified parts of digestive tract; Z90.710 Acquired absence of both cervix and uterus; Z95.1 Presence of aortocoronary bypass graft; Z85.850 Personal history of malignant neoplasm of thyroid; Z85.828 Personal history of other malignant neoplasm of skin